=== PATIENT | male | born 1965 ===

== ENCOUNTER 2021-11-23 11:02 | Inpatient (IN) | payer OTHER ==
[2021-11-23] MEDS ORDERED: LOPERAMIDE HCL 2 MG CAPSULE PO PRN (11:27)
[2021-11-23] MEDS ORDERED: LORazepam 1 MG TABLET PO PRN (11:27)
[2021-11-23] MEDS ORDERED: ONDANSETRON *ODT* 4 MG TABLET SL PRN (11:27)
[2021-11-23] MEDS ORDERED: MAGNESIUM HYDROX 2400MG/30ML ORAL SUSPENSION 30 ML CUP PO PRN (11:27)
[2021-11-23] MEDS ORDERED: MAGNESIUM CITRATE 300 ML BOTTLE PO PRN (11:27)
[2021-11-23] MEDS ORDERED: BISMUTH SUBSALICYLATE 262 MG/15 ML BTL PO PRN (11:27)
[2021-11-23] MEDS ORDERED: IBUPROFEN 400 MG TABLET (FP) PO PRN (11:27)
[2021-11-23] MEDS ORDERED: NICOTINE 10 MG CARTRIDGE (INHALER) IH PRN (11:27)
[2021-11-23] MEDS ORDERED: MAG HYDROX/AL HYDROX/SIMETH 30 ML UNIT-DOSE CUP PO PRN (11:27)
[2021-11-23] MEDS ORDERED: MENTHOL/PHENOL 1 EACH UD MM PRN (11:27)
[2021-11-23] MEDS ORDERED: ACETAMINOPHEN 325 MG TABLET (FP) PO PRN ×2 (11:27)
[2021-11-23 12:07] VITALS: BMI 25.9
[2021-11-23 13:25] LABS: HEMATOCRIT 45.6 % (35.4-49); HEMOGLOBIN 15.2 GM/dL (11.7-16.9); MCH 30.6 pg (25.7-33.7); MCHC 33.4 g/dl (32.0-35.9); MEAN CELL VOLUME 91.7 fl (80-96); MEAN PLT VOLUME 9.1 fl (7.5-11.1); PLATELET COUNT 157 10^3/uL (134-434); RBC 4.97 M/mm3 (4.00-5.60); RDW 16.3 % (11.9-15.9); WHITE BLOOD COUNT 10.2 K/mm3 (4.0-10.0)
[2021-11-23 13:31] LABS: BLOOD UREA NITROGEN 17.3 mg/dL (7-18)
[2021-11-23 13:33] LABS: CALCIUM 8.8 mg/dL (8.5-10.1)
[2021-11-23 13:36] LABS: BILIRUBIN,TOTAL 0.6 mg/dL (0.2-1); CREATININE 0.9 mg/dL (0.55-1.3)
[2021-11-23 13:37] LABS: TOT PROT 7.9 g/dl (6.4-8.2)
[2021-11-23] MEDS: PRENATAL VITAMINS W/ FOLIC ACID TABLET (FP) PO SCH (13:51)
[2021-11-23] MEDS: hydrOXYzine PAMOATE 25 MG CAPSULE (FP) PO SCH ×3 (13:51→22:47)
[2021-11-23] MEDS: LORazepam 2 MG TABLET PO SCH ×2 (17:40→22:48)
[2021-11-23] MEDS: MELATONIN 5 MG TABLETS PO SCH (22:47)
[2021-11-23] MEDS: THIAMINE HCL 100 MG TABLET (FP) PO SCH (22:47)
[2021-11-24] MEDS: hydrOXYzine PAMOATE 25 MG CAPSULE (FP) PO SCH ×5 (05:17→22:24)
[2021-11-24] MEDS: LORazepam 2 MG TABLET PO SCH ×4 (05:17→22:24)
[2021-11-24] MEDS: PRENATAL VITAMINS W/ FOLIC ACID TABLET (FP) PO SCH (10:30)
[2021-11-24] MEDS: PANTOPRAZOLE 20 MG TABLET PO SCH (13:48)
[2021-11-24] MEDS: METHOCARBAMOL 500 MG TABLET PO PRN (22:24)
[2021-11-24] MEDS: THIAMINE HCL 100 MG TABLET (FP) PO SCH (22:25)
[2021-11-24] MEDS: MELATONIN 5 MG TABLETS PO SCH (22:25)
[2021-11-25] MEDS: LORazepam 1 MG TABLET PO SCH ×4 (04:28→22:05)
[2021-11-25] MEDS: hydrOXYzine PAMOATE 25 MG CAPSULE (FP) PO SCH ×5 (05:03→22:05)
[2021-11-25 10:08] LABS: SARS-CoV-2 NAA Not Detected (Not Detected)
[2021-11-25] MEDS: PANTOPRAZOLE 20 MG TABLET PO SCH (10:17)
[2021-11-25] MEDS: PRENATAL VITAMINS W/ FOLIC ACID TABLET (FP) PO SCH (10:17)
[2021-11-25] MEDS: LACTULOSE 20 GM/30 ML UDC (FOR ORAL USE ONLY) PO SCH ×3 (13:32→22:05)
[2021-11-25 14:11] LABS: EOS % 1.3 % (0-4.5); HEMATOCRIT 42.5 % (35.4-49); LYMPH % 42.2 % (8-40); MCH 30.7 pg (25.7-33.7); MCHC 32.9 g/dl (32.0-35.9); MEAN CELL VOLUME 93.1 fl (80-96); MEAN PLT VOLUME 9.4 fl (7.5-11.1); MONO % 9.4 % (3.8-10.2); NEUT % 46.1 % (42.8-82.8); PLATELET COUNT 133 10^3/uL (134-434); RBC 4.57 M/mm3 (4.00-5.60); WHITE BLOOD COUNT 6.5 K/mm3 (4.0-10.0)
[2021-11-25 14:24] LABS: ALBUMIN 3.7 g/dl (3.4-5.0); BLOOD UREA NITROGEN 14.2 mg/dL (7-18)
[2021-11-25 14:25] LABS: CALCIUM 9.4 mg/dL (8.5-10.1)
[2021-11-25 14:26] LABS: BILIRUBIN,TOTAL 0.6 mg/dL (0.2-1)
[2021-11-25 17:20] LABS: INR 0.94 (0.83-1.09); PROTHROMBIN TIME (PATIENT) 10.8 SEC (9.7-13.0)
[2021-11-25] MEDS: THIAMINE HCL 100 MG TABLET (FP) PO SCH (22:05)
[2021-11-25] MEDS: MELATONIN 5 MG TABLETS PO SCH (22:05)
[2021-11-25] MEDS ORDERED: METOPROLOL TARTRATE 25 MG TABLET (FP) PO ONE (22:14)
[2021-11-25] MEDS: METHOCARBAMOL 500 MG TABLET PO PRN (23:08)
[2021-11-26] MEDS ORDERED: LORazepam 0.5 MG TABLET PO PRN
[2021-11-26] MEDS: hydrOXYzine PAMOATE 25 MG CAPSULE (FP) PO SCH ×5 (07:16→22:15)
[2021-11-26] MEDS: LORazepam 0.5 MG TABLET PO SCH ×4 (07:16→22:15)
[2021-11-26] MEDS: PRENATAL VITAMINS W/ FOLIC ACID TABLET (FP) PO SCH (10:34)
[2021-11-26] MEDS: PANTOPRAZOLE 20 MG TABLET PO SCH (10:35)
[2021-11-26] MEDS: LACTULOSE 20 GM/30 ML UDC (FOR ORAL USE ONLY) PO SCH ×4 (10:35→22:15)
[2021-11-26] MEDS: MAGNESIUM OXIDE 400 MG TABLET (FP) PO SCH ×2 (17:07→22:15)
[2021-11-26] MEDS: METHOCARBAMOL 500 MG TABLET PO PRN (22:15)
[2021-11-26] MEDS: THIAMINE HCL 100 MG TABLET (FP) PO SCH (22:15)
[2021-11-26] MEDS: MELATONIN 5 MG TABLETS PO SCH (22:18)
[2021-11-27] MEDS ORDERED: LORazepam 0.5 MG TABLET PO ONE (05:00)
[2021-11-27] MEDS: hydrOXYzine PAMOATE 25 MG CAPSULE (FP) PO SCH ×2 (06:30→10:54)
[2021-11-27 08:50] VITALS: BP 133/92; PULSE 78; TEMP 96.7
[2021-11-27] MEDS: PANTOPRAZOLE 20 MG TABLET PO SCH (10:52)
[2021-11-27] MEDS: MAGNESIUM OXIDE 400 MG TABLET (FP) PO SCH (10:52)
[2021-11-27] MEDS: PRENATAL VITAMINS W/ FOLIC ACID TABLET (FP) PO SCH (10:52)
[2021-11-27] MEDS: LACTULOSE 20 GM/30 ML UDC (FOR ORAL USE ONLY) PO SCH (10:53)
[2021-11-27] MEDS ORDERED: hydrOXYzine PAMOATE 25 MG CAPSULE (FP) PO PRN (11:13)
== END 2021-11-27 12:33 | disposition other institution (70) | DRG 897 ==
LOC: YASAS 11:02 → Y3N 11:51
PROVIDERS: ADMIT Allergy & Immunology; ATTEND Allergy & Immunology
PROC: HZ2ZZZZ Detoxification Services for Substance Abuse Treatment (ICD-10-PCS; principal; 2021-11-23)
DX: F10.230 Alcohol dependence with withdrawal, uncomplicated (principal); F17.210 Nicotine dependence, cigarettes, uncomplicated; I10 Essential (primary) hypertension; K21.9 Gastro-esophageal reflux disease without esophagitis; R79.89 Other specified abnormal findings of blood chemistry; Z87.19 Personal history of other diseases of the digestive system
CPT/HCPCS: 36415; 71046-TC-FY; 80053; 82140; 82962; 85025; 85027; 85610; 86780; 93005; 93010; C9803; U0003; U0005